=== PATIENT | female | born 1940 | race Caucasian/White ===

== ENCOUNTER 2023-07-05 17:13 | Emergency (ER) | payer MEDICARE, OTHER ==
[2023-07-05] MEDS ORDERED: methylPREDNISolone Sodium Succinate 40 MG/1 ML SDV IM ONE (17:32)
[2023-07-05] MEDS ORDERED: diphenhydrAMINE 50 MG/ML SDV IM ONE (17:37)
== END 2023-07-05 18:00 | disposition home or self-care (01) ==
LOC: MERGE 17:13 → VM.ED 17:13
DX: S20.361A Insect bite (nonvenomous) of right front wall of thorax, initial encounter (principal); S60.561A Insect bite (nonvenomous) of right hand, initial encounter; S90.861A Insect bite (nonvenomous), right foot, initial encounter; S00.86XA Insect bite (nonvenomous) of other part of head, initial encounter; I10 Essential (primary) hypertension; W57.XXXA Bitten or stung by nonvenomous insect and other nonvenomous arthropods, initial encounter; Z88.0 Allergy status to penicillin; Z88.8 Allergy status to other drugs, medicaments and biological substances; Z88.7 Allergy status to serum and vaccine
CPT/HCPCS: 96372 ×2; 99282; J1200; J2920

== ENCOUNTER 2024-09-29 15:43 | Emergency (ER) | payer MEDICARE ==
[2024-09-29] MEDS ORDERED: Sodium Chloride 0.9% 10 ML Syringe FLUSH PRN (16:05)
[2024-09-29 16:17] LABS: BASOPHILS PERCENT AUTO 0.6 % (0.2-1.2); EOSINOPHILS ABSOLUTE AUTO 0.2 x10^3/uL (0.0-0.5); EOSINOPHILS PERCENT AUTO 2.9 % (0.0-4.0); HEMATOCRIT 36.9 % (33.0-47.0); HEMOGLOBIN 13.2 g/dL (12.0-16.0); IMMATURE GRAN ABSOLUTE AUTO 0.01 x10^3/uL (0.00-0.07); LYMPHOCYTES ABSOLUTE AUTO 1.6 x10^3/uL (1.0-4.8); MEAN CORPUSCULAR HGB CONC 35.8 g/dL (32.0-36.0); MEAN CORPUSCULAR VOLUME 92.3 fL (78.0-93.0); MONOCYTES ABSOLUTE AUTO 0.5 x10^3/uL (0.0-0.8); MONOCYTES PERCENT AUTO 8.4 % (2.0-11.0); NEUTROPHILS PERCENT AUTO 62.9 % (50.0-80.0); PLATELET COUNT,PLT 184 x10^3/uL (130-400); WHITE BLOOD CELL COUNT,WBC 6.3 x10^3/uL (4.0-10.0)
[2024-09-29] MEDS: methylPREDNISolone Sod Succ 1,000 MG in Sodium Chloride 0.9% 100 ML IV ONE (16:26)
[2024-09-29 16:33] LABS: PROTHROMBIN TIME 9.8 SEC (8.9-11.5)
[2024-09-29 16:46] LABS: A/G RATIO 1.03; ALBUMIN 3.6 g/dL (3.4-5.0); BILIRUBIN TOTAL 0.6 mg/dL (0.2-1.0); C-REACTIVE PROTEIN 2.69 mg/dL (<=0.50); CALCIUM 9.6 mg/dL (8.5-10.1); CREATININE 0.9 mg/dL (0.55-1.02); EST CRCL DRUG DOSING (CG) 45.12 mL/min; MAGNESIUM 1.8 mg/dL (1.8-2.4); POTASSIUM,K 3.4 mmol/L (3.5-5.1); PROTEIN TOTAL,TP 7.1 g/dL (6.4-8.2)
[2024-09-29 16:47] LABS: ANION GAP 12.4 mmol/L (5-15)
== END 2024-09-29 16:49 | disposition home or self-care (01) ==
LOC: VM.ED 15:43
DX: M31.6 Other giant cell arteritis (principal); I10 Essential (primary) hypertension; Z88.8 Allergy status to other drugs, medicaments and biological substances; Z88.0 Allergy status to penicillin; Z88.7 Allergy status to serum and vaccine; Z91.030 Bee allergy status
CPT/HCPCS: 80053; 83605; 83735; 84484; 85025; 85610; 85730; 86140; 93005; 96365; 99283; J2919; 93010; 99284

== ENCOUNTER 2024-12-07 19:57 | Emergency (ER) | payer MEDICARE ==
[2024-12-07] MEDS ORDERED: Sodium Chloride 0.9% 10 ML Syringe FLUSH PRN (20:09)
[2024-12-07] MEDS: Lactated Ringers 1,000 ML IV ONE (20:11)
[2024-12-07] MEDS: Ondansetron 4 MG/2 ML SDV IVPUSH ONE (20:15)
[2024-12-07 20:27] LABS: BASOPHILS PERCENT AUTO 0.5 % (0.2-1.2); EOSINOPHILS ABSOLUTE AUTO 0.2 x10^3/uL (0.0-0.5); EOSINOPHILS PERCENT AUTO 3.1 % (0.0-4.0); HEMATOCRIT 38.5 % (33.0-47.0); HEMOGLOBIN 13.8 g/dL (12.0-16.0); IMMATURE GRAN ABSOLUTE AUTO 0.02 x10^3/uL (0.00-0.07); LYMPHOCYTES ABSOLUTE AUTO 3.1 x10^3/uL (1.0-4.8); MEAN CORPUSCULAR HEMOGLOBIN 32.7 pg (26.0-32.0); MEAN CORPUSCULAR HGB CONC 35.8 g/dL (32.0-36.0); MEAN CORPUSCULAR VOLUME 91.2 fL (78.0-93.0); MONOCYTES ABSOLUTE AUTO 0.5 x10^3/uL (0.0-0.8); MONOCYTES PERCENT AUTO 6.4 % (2.0-11.0); NEUTROPHILS ABSOLUTE AUTO 3.5 x10^3/uL (1.8-7.7); NEUTROPHILS PERCENT AUTO 47.7 % (50.0-80.0); PLATELET COUNT,PLT 208 x10^3/uL (130-400); RED BLOOD CELL COUNT 4.22 x10^6/uL (4.00-5.50); WHITE BLOOD CELL COUNT,WBC 7.4 x10^3/uL (4.0-10.0)
[2024-12-07 21:01] LABS: A/G RATIO 1.14; ALANINE AMINOTRANSFERASE,ALT 20 U/L (14-59); ALBUMIN 4.1 g/dL (3.4-5.0); ALKALINE PHOSPHATASE 96 U/L (46-116); ASPARTATE AMNIOTRANSFERASE,AST 19 U/L (15-37); BILIRUBIN TOTAL 0.4 mg/dL (0.2-1.0); BLOOD UREA NITROGEN,BUN 13 mg/dL (7-18); CALCIUM 9.4 mg/dL (8.5-10.1); CARBON DIOXIDE,CO2 29 mmol/L (21-32); CHLORIDE,CL 99 mmol/L (98-107); CREATININE 0.8 mg/dL (0.55-1.02); ETHANOL BLOOD MEDICAL 162 mg/dL (0-3); GLUCOSE RANDOM 112 mg/dL (70-99); MAGNESIUM 1.9 mg/dL (1.8-2.4); PROTEIN TOTAL,TP 7.7 g/dL (6.4-8.2); SODIUM,NA 136 mmol/L (136-145)
[2024-12-07 21:05] LABS: INR 0.9 (0.9-1.1); PROTHROMBIN TIME 10.1 SEC (9.6-12.0); PTT,PARTIAL THROMBOPLSTIN TIME 22.5 SEC (23.5-33.2)
[2024-12-07 21:09] LABS: ANION GAP 10.9 mmol/L (5-15); ESTIMATED GFR 74 mL/min (>=60)
[2024-12-07 21:10] LABS: POTASSIUM,K 2.9 mmol/L (3.5-5.1)
[2024-12-07] MEDS: Take Home: Ondansetron 4 MG Tab.DIS, 5 Tab Pack PO ONE (22:22)
== END 2024-12-07 22:15 | disposition home or self-care (01) ==
LOC: VM.ED 19:57
DX: F10.129 Alcohol abuse with intoxication, unspecified (principal); E87.6 Hypokalemia; J01.40 Acute pansinusitis, unspecified; I10 Essential (primary) hypertension; E78.00 Pure hypercholesterolemia, unspecified; Z91.030 Bee allergy status; Z88.0 Allergy status to penicillin; Z88.8 Allergy status to other drugs, medicaments and biological substances; Z88.7 Allergy status to serum and vaccine; Z79.899 Other long term (current) drug therapy; Z79.82 Long term (current) use of aspirin; Y90.6 Blood alcohol level of 120-199 mg/100 ml
CPT/HCPCS: 70450; 80053; 80307; 83735; 84443; 85025; 85610; 85730; 96361; 96374; 99284; J2405; J7120; Q0162